=== PATIENT | female | born 1970 | race Caucasian/White ===

== ENCOUNTER → 2019-04-29 | Outpatient (CLI) | payer BC ==
[~2019-04-29] MED LIST: CYCL10 PO; DIPH50 PO; FAMO40 PO; HYDPAM50 PO; IBUP800 PO; PRED10 PO
== END | disposition home or self-care (01) ==
LOC: LAB 19:51 → LAB SHORT 19:51
PROVIDERS: Family Medicine
DX: Z12.4 Encounter for screening for malignant neoplasm of cervix (principal)
CPT/HCPCS: G0123

== ENCOUNTER → 2021-09-01 | Outpatient (CLI) | payer BC | END | disposition home or self-care (01) | LOC: LAB 16:41 → LAB SHORT 16:41 | PROVIDERS: Family Medicine | DX: Z90.710 Acquired absence of both cervix and uterus (principal) | CPT/HCPCS: G0145 ==